=== PATIENT | female | born 1990 | race Two or more races ===

== ENCOUNTER 2022-06-25 06:54 | Emergency (ER) | payer SELFPAY ==
[~2022-06-25] VITALS: Ht 167.6 cm; Wt 59.9 kg
--- NOTE | 2022-06-25 07:20 | NUR ---
RECEived pt 31 yrs female from home accompany by mother c/o vomiting and diarrhea last night x 5 abdomin soft none tnder
--- NOTE | 2022-06-25 07:30 | NUR ---
UA SENT TO LAB
--- NOTE | 2022-06-25 07:37 | NUR ---
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
[2022-06-25] MEDS ORDERED: ONDANSETRON HCL/PF 4 MG/2 ML VIAL IVP ONE (08:00)
[2022-06-25] MEDS ORDERED: IV NS 0.9% 1,000 ML BAG IV ONE (08:00)
[2022-06-25] MEDS ORDERED: KETOROLAC TROMETHAMINE INJ 30 MG/ML VIAL IV ONE (08:00)
--- NOTE | 2022-06-25 08:30 | NUR ---
PT REFUSED IVF AND BLOOD DROW AND WALKNG OUT DR. MORRIS NOTEFED AND AWARE
--- NOTE | 2022-06-25 08:31 | NUR ---
Patient eloped from facility. ER MD notified.
[2022-06-25 10:26] VITALS: BP 88/64
== END 2022-06-25 08:44 | disposition left against medical advice (07) ==
LOC: ER 06:56
DX: K52.9 Noninfective gastroenteritis and colitis, unspecified (principal); N94.6 Dysmenorrhea, unspecified
CPT/HCPCS: 99283; 84703; J7030